=== PATIENT | male | born 1980 | race Caucasian/White ===

== ENCOUNTER 2023-11-04 13:30 | Outpatient (RCR) | payer OTHER, SELFPAY ==
--- NOTE | 2023-10-05 13:44 | OPREHPOC ---
Outpatient Therapy Plan of Care This is a Multidisciplinary Plan of Care that may contain components documented by all disciplines (PT, OT, and ST.) PT Problem 1 PT Problem #1 Knowledge Deficit PT Goal 1 Goal Pt will be independent in HEP Pt will verbalize understanding of diagnosis and prognosis Target Visit 5 PT Problem 2 PT Problem #2 Pain PT Goal 1 Goal Pt will report resolution of pain with normal work activities Target Visit 12 PT Problem 3 PT Problem #3 Impaired Flexibility PT Goal 1 Goal Pt will demo kalee hamstring flexibility of 80 from 90/90 position Target Visit 12 PT Goal 2 Goal Pt will demo passive ROM R hip comapred to L
--- NOTE | 2023-10-05 13:45 | PTOPEVAL1 ---
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 Didn' t think much of it, has done this before without issues. After lunch felt back getting tight, thought may be related to cold outside. Gradually worsened the day and that night. Next day went to work, walked like rode a hours for 5 hours . Stayed home and was hard to put socks and shoes on. Couldn't sit, stand, lay down. Got into doc on Thursday got steroids and muscles relaxers, took Thursday off and felt good Thursday went back to work 09/22/23. Pt reports has been able to return to work full force . Doesn't walk funny or worry about falling into bed. States his colleagues are trying to assist in preventing him from over-doing it. Did a 5 day steroid pack, cyclobenzaprene, and meloxicam. Once done with the steroid pack was pretty much back to normal. When still feels it is with high level activity, or over does it , just a real little bit of tightness and then it goes away. If is active will feel it let me know it's there . Did have some pain down back of the leg and with laying flat had some tingling in feet but when would get up would go away. All resolved now. Reported Pain Level Pain Score 1: Self Report Assessment PT Clinical Summary Pt presents after low back injury approx 3 weeks ago while at work. Pt reports significant improvement since then with steroid pack and muscle relaxers. Pt was able to return to work approx one week post injury while taking steroids and reports since then has had no pain. States he has been able to return to his full activity level with some mild discomfort occasionally. Evaluation shows some tightness of the right hip, upslipped right iliac crest, mild deficits in hamstring flexibility, and mild deficits in strength lumbopel
--- NOTE | 2023-11-04 14:12 | PTOPDC ---
Assessment and note entered by Kayla Holliday, PT Assessment Status Discharge Diagnosis low back pain, strain of muscle, fascia, tendon Onset 09/15/2023 Subjective Information Self percieved improvement: 90% Still gets a little stiff sometimes. 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 Pt has met all his goals, has 0/10 pain, and rates himself at 0% disability in the Oswestry outcome measure. Thus patient is being discharged at this time for having completed his therapy program. Plan of Care PT Services Indicated No
== END 2023-11-06 14:45 | disposition home or self-care (01) ==
LOC: ANHHIPT 13:30
PROVIDERS: PCP Nurse Practitioner Family; Visit Provider Nurse Practitioner Family
DX: S39.012D Strain of muscle, fascia and tendon of lower back, subsequent encounter (principal)
CPT/HCPCS: 97110; 97112; 97140; 97161; 97530; 97750